=== PATIENT | female | born 1960 | race Caucasian/White ===

== ENCOUNTER 2017-09-07 14:42 | Inpatient (IN) | payer MEDICARE ==
[~2017-09-07] VITALS: Ht 165.1 cm; Wt 53.8 kg
[2017-09-07] MEDS ORDERED: LORazepam 2 MG/ML, 1ML ONE (15:23)
[2017-09-07] MEDS ORDERED: LORazepam 2 MG/ML, 1ML IVP ONE (15:30)
[2017-09-07] MEDS ORDERED: SODIUM CHLORIDE FLUSH 10ML SYR IVF ONE (15:30)
[2017-09-07] MEDS ORDERED: SODIUM CHLORIDE 0.9% 1,000ML IVBOLUS ONE (15:30)
[2017-09-07 15:33] LABS: WHITE BLOOD COUNT 7.7 x10^3/uL (3.4-10)
[2017-09-07] MEDS ORDERED: ALBUTEROL/IPRATROPIUM 2.5MG/0.5MG, 3 ML ONE ×2 (15:36→16:38)
[2017-09-07] MEDS: ALBUTEROL/IPRATROPIUM 2.5MG/0.5MG, 3 ML NPPB SCH ×3 (15:36→23:00)
[2017-09-07 15:41] LABS: BLOOD UREA NITROGEN 25 mg/dL (7-18)
[2017-09-07 15:48] LABS: IS PT STATUS REG ER OR PRE ER? YES
[2017-09-07] MEDS ORDERED: MONT10TA6 PO (15:54)
[2017-09-07] MEDS ORDERED: FLUT1DIS3 INH (15:54)
[2017-09-07] MEDS ORDERED: AMPH30CA6 PO (15:54)
[2017-09-07] MEDS ORDERED: FESO8TAB PO (15:54)
[2017-09-07] MEDS ORDERED: ESTR0.5T PO (15:54)
[2017-09-07] MEDS ORDERED: MAGNESIUM SULFATE PMX 2GM/50ML 50 ML IV ONE (16:00)
[2017-09-07 16:16] LABS: RAPID INFLUENZA A Negative (Negative); RAPID INFLUENZA B Negative (Negative)
[2017-09-07] MEDS ORDERED: ALBUTEROL/IPRATROPIUM 2.5MG/0.5MG, 3 ML NPPB ONE (16:30)
[2017-09-07] MEDS ORDERED: SODIUM CHLORIDE 0.9% 1,000 ML IV SCH (17:42)
[2017-09-07] MEDS ORDERED: POLYETHYLENE GLYCOL 17 GM PACKET PO PRN (18:00)
[2017-09-07] MEDS ORDERED: ACETAMINOPHEN 325 MG TABLET PO PRN (18:00)
[2017-09-07] MEDS ORDERED: SODIUM CHLORIDE FLUSH 10ML SYR IVF PRN (18:00)
[2017-09-07] MEDS ORDERED: DOCUSATE 100 MG CAPSULE PO PRN (18:00)
[2017-09-07] MEDS ORDERED: ONDANSETRON 2MG/ML, 2ML IVPush PRN (18:00)
[2017-09-07] MEDS ORDERED: ENALAPRILAT 1.25 MG/ML, 2ML IVPush PRN (18:00)
[2017-09-07] MEDS ORDERED: BISACODYL 10 MG SUPP PR PRN (18:00)
[2017-09-07 18:30] VITALS: BP 118/71
[2017-09-07 19:51] VITALS: BP 118/71
[2017-09-07] MEDS: GUAIFENESIN ER 600 MG TABLET PO SCH (20:57)
[2017-09-07] MEDS: LORazepam 2 MG/ML, 1ML IVPush PRN (20:57)
[2017-09-07] MEDS: methylPREDNISolone SOD SUCC 125 MG/2 ML IVPush SCH (20:57)
[2017-09-07] MEDS ORDERED: VARENICLINE 1MG TABLET PO SCH (21:00)
[2017-09-08 02:51] VITALS: BP 114/65
[2017-09-08] MEDS: methylPREDNISolone SOD SUCC 125 MG/2 ML IVPush SCH ×2 (03:00→09:00)
[2017-09-08] MEDS: ALBUTEROL/IPRATROPIUM 2.5MG/0.5MG, 3 ML NPPB SCH ×5 (03:00→22:13)
[2017-09-08] MEDS: LORazepam 2 MG/ML, 1ML IVPush PRN (03:02)
[2017-09-08 05:57] LABS: BLOOD UREA NITROGEN 20 mg/dL (7-18)
[2017-09-08 06:57] VITALS: BP 118/74
[2017-09-08] MEDS ORDERED: FESOTERODINE FUMARATE PO SCH (09:00)
[2017-09-08] MEDS: FLUTICASONE/VILANTEROL 100-25MCG/INH INH SCH (09:00)
[2017-09-08] MEDS: AMPHETAMINE PO SCH (09:00)
[2017-09-08] MEDS: VARENICLINE 1MG TABLET PO SCH ×2 (09:00→17:00)
[2017-09-08] MEDS: DEXTROAMPHETAMINE PO SCH (09:00)
[2017-09-08] MEDS: ESTRADIOL 0.5 MG TABLET PO SCH (10:38)
[2017-09-08] MEDS: GUAIFENESIN ER 600 MG TABLET PO SCH ×2 (10:39→20:09)
[2017-09-08] MEDS: MONTELUKAST 10 MG TABLET PO SCH (10:39)
[2017-09-08 13:56] VITALS: BP 119/72
[2017-09-08 19:29] VITALS: BP 128/78
[2017-09-08] MEDS ORDERED: GUAIFENESIN/DM 200-20MG, 10ML UDC PO PRN (20:00)
[2017-09-09 02:33] VITALS: BP 129/77
[2017-09-09 06:50] VITALS: BP 102/63
[2017-09-09] MEDS: ALBUTEROL/IPRATROPIUM 2.5MG/0.5MG, 3 ML NPPB SCH (07:05)
[2017-09-09] MEDS: FLUTICASONE/VILANTEROL 100-25MCG/INH INH SCH (08:48)
[2017-09-09] MEDS: GUAIFENESIN ER 600 MG TABLET PO SCH (08:48)
[2017-09-09] MEDS: ESTRADIOL 0.5 MG TABLET PO SCH (08:49)
[2017-09-09] MEDS: MONTELUKAST 10 MG TABLET PO SCH (08:49)
[2017-09-09] MEDS: VARENICLINE 1MG TABLET PO SCH (08:49)
[2017-09-09] MEDS ORDERED: VARE1TAB21 PO (08:50)
[2017-09-09] MEDS: AMPHETAMINE PO SCH (08:50)
[2017-09-09] MEDS: DEXTROAMPHETAMINE PO SCH (08:50)
[2017-09-09] MEDS ORDERED: GUAI600T31 PO (08:50)
[2017-09-09] MEDS ORDERED: IPRA3AMP NPPB (08:50)
[2017-09-09] MEDS ORDERED: PRED20TA PO (08:50)
[2017-09-09] MEDS ORDERED: FLU VACC QS2017-18 (36MOS+) UP/PF 0.5 ML IM-VACC ONE (11:00)
== END 2017-09-09 11:30 | disposition home or self-care (01) | DRG 202 ==
LOC: ED 17:27 → EDIP 17:31 → UNDOADMIN 17:42 → 3NE 18:15
PROVIDERS: ADMIT Internal Medicine; ATTEND Internal Medicine
DX: J45.42 Moderate persistent asthma with status asthmaticus (principal); E44.1 Mild protein-calorie malnutrition; Z68.1 Body mass index [BMI] 19.9 or less, adult; Z82.49 Family history of ischemic heart disease and other diseases of the circulatory system; Z83.3 Family history of diabetes mellitus; Z90.710 Acquired absence of both cervix and uterus; R73.9 Hyperglycemia, unspecified; R91.1 Solitary pulmonary nodule; F17.200 Nicotine dependence, unspecified, uncomplicated; Z90.49 Acquired absence of other specified parts of digestive tract; Z90.89 Acquired absence of other organs; Z23 Encounter for immunization
CPT/HCPCS: 36415; 71010; 71250; 80048; 82040; 83605; 83880; 84484; 85025; 85610; 87400; 90686; 93005; 94640; 96361; 96374; 96375; J7620; J2060; J2930; J3475; J7030; J7512

== ENCOUNTER 2018-01-30 19:56 | Emergency (ER) | payer MEDICARE, MEDICAID ==
[~2018-01-30] VITALS: Ht 165.1 cm; Wt 53.2 kg
[~2018-01-30 19:56] MED LIST: AMPH30CA6 PO; ESTR0.5T PO; FESO8TAB PO; FLUT1DIS3 INH; GUAI600T31 PO; IPRA3AMP NPPB; MONT10TA6 PO; PRED20TA PO; VARE1TAB21 PO
[2018-01-30 19:58] VITALS: BP 104/67
== END 2018-01-30 20:24 | disposition left against medical advice (07) ==
LOC: ED 20:18
DX: I10 Essential (primary) hypertension (principal)
CPT/HCPCS: 99281

== ENCOUNTER 2018-03-24 03:01 | Emergency (ER) | payer MEDICARE, MEDICAID ==
[~2018-03-24] VITALS: Ht 165.1 cm; Wt 57.1 kg
[2018-03-24 03:02] VITALS: BP 121/75
[2018-03-24] MEDS ORDERED: MAALOX/HYOSCYAMINE/LIDOCAINE 45 ML BTL PO ONE (03:30)
[2018-03-24] MEDS ORDERED: PANTOPRAZOLE 20MG TABLET PO ONE (03:30)
[2018-03-24 03:54] LABS: BASOPHILS # (AUTO) 0.02 x10^3/uL (0-0.1); BASOPHILS % (AUTO) 0 % (0-1); EOSINOPHILS % (AUTO) 8 % (1-7); LYMPHOCYTES # (AUTO) 1.74 x10^3/uL (1-3.4); LYMPHOCYTES % (AUTO) 27 % (22-44); MD NO; MEAN CORPUSCULAR HEMOGLOBIN 31.1 pg (27.0-34.8); MEAN CORPUSCULAR HGB CONC 33.8 g/dL (32.4-35.8); MEAN CORPUSCULAR VOLUME 92.1 fL (80-100); MEAN PLATELET VOLUME 7.7 fL (7.4-10.4); MONOCYTES # (AUTO) 0.52 x10^3/uL (0.2-0.8); MONOCYTES % (AUTO) 8 % (2-9); NEUTROPHILS # (AUTO) 3.57 x10^3/uL (1.8-6.8); NEUTROPHILS % (AUTO) 56 % (42-75); PLATELET COUNT 205 x10^3/uL (130-400); RED BLOOD COUNT 4.59 x10^6/uL (3.82-5.3)
[2018-03-24 04:08] LABS: ALANINE AMINOTRANSFERASE 23 U/L (12-78); ALBUMIN 3.6 g/dL (3.4-5.0); ANION GAP 4 mmol/L (5-15); CALCIUM 8.6 mg/dL (8.5-10.1); CHLORIDE 105 mmol/L (98-107); CREATININE 0.89 mg/dL (0.55-1.02)
[2018-03-24] MEDS ORDERED: PANTOPRAZOLE 20MG TABLET ONE (04:09)
[2018-03-24] MEDS ORDERED: MAALOX/HYOSCYAMINE/LIDOCAINE 45 ML BTL ONE (04:09)
[2018-03-24 04:10] LABS: ALKALINE PHOSPHATASE 67 U/L (45-117); BILIRUBIN,TOTAL 0.3 mg/dL (0.2-1.0)
== END 2018-03-24 05:53 | disposition home or self-care (01) ==
LOC: ED 05:50
DX: K29.00 Acute gastritis without bleeding (principal); J45.909 Unspecified asthma, uncomplicated; Z90.49 Acquired absence of other specified parts of digestive tract; Z90.710 Acquired absence of both cervix and uterus
CPT/HCPCS: 36415; 74021; 76700; 80053; 83690; 85025; 93005; 99285

== ENCOUNTER 2018-04-04 19:23 | Inpatient (IN) | payer MEDICAID, MEDICARE, OTHER ==
[~2018-04-04] VITALS: Ht 165.1 cm; Wt 59.8 kg
[2018-04-04] MEDS ORDERED: LORazepam 2 MG/ML, 1ML IVPush STA (19:45)
[2018-04-04] MEDS ORDERED: ALBUTEROL/IPRATROPIUM 2.5MG/0.5MG, 3 ML ONE (19:49)
[2018-04-04] MEDS ORDERED: LORazepam 2 MG/ML, 1ML ONE (19:52)
[2018-04-04] MEDS ORDERED: SODIUM CHLORIDE FLUSH 10ML SYR IVF ONE (20:00)
[2018-04-04] MEDS ORDERED: ALBUTEROL/IPRATROPIUM 2.5MG/0.5MG, 3 ML NPPB ONE (20:00)
[2018-04-04 20:53] LABS: BASOPHILS # (AUTO) 0.01 x10^3/uL (0-0.1); BASOPHILS % (AUTO) 0 % (0-1); EOSINOPHILS # (AUTO) 0.01 x10^3/uL (0-0.4); EOSINOPHILS % (AUTO) 0 % (1-7); LYMPHOCYTES # (AUTO) 0.65 x10^3/uL (1-3.4); LYMPHOCYTES % (AUTO) 6 % (22-44); MD NO; MEAN CORPUSCULAR HEMOGLOBIN 30.8 pg (27.0-34.8); MEAN CORPUSCULAR HGB CONC 33.3 g/dL (32.4-35.8); MEAN CORPUSCULAR VOLUME 92.4 fL (80-100); MEAN PLATELET VOLUME 7.9 fL (7.4-10.4); MONOCYTES # (AUTO) 0.33 x10^3/uL (0.2-0.8); MONOCYTES % (AUTO) 3 % (2-9); NEUTROPHILS # (AUTO) 10.26 x10^3/uL (1.8-6.8); NEUTROPHILS % (AUTO) 91 % (42-75); PLATELET COUNT 197 x10^3/uL (130-400); RED BLOOD COUNT 4.58 x10^6/uL (3.82-5.3); RED CELL DISTRIBUTION WIDTH 14.1 % (9.6-15.2)
[2018-04-04 21:04] LABS: ALBUMIN 3.8 g/dL (3.4-5.0); ANION GAP 6 mmol/L (5-15); CALCIUM 8.9 mg/dL (8.5-10.1); CHLORIDE 107 mmol/L (98-107); CREATININE 0.98 mg/dL (0.55-1.02)
[2018-04-04 21:08] LABS: TROPONIN I < 0.015 ng/mL (0.000-0.045)
[2018-04-04] MEDS ORDERED: MORPHINE SULFATE 4 MG/ML, 1ML IVPush PRN (22:00)
[2018-04-04] MEDS ORDERED: MORPHINE SULFATE 4 MG/ML, 1ML ONE (22:06)
[2018-04-04] MEDS: VARENICLINE 1MG TABLET PO SCH (22:30)
[2018-04-04] MEDS ORDERED: HYDROcodone/APAP 5/325 TABLET PO PRN (22:30)
[2018-04-04] MEDS ORDERED: ACETAMINOPHEN 325 MG TABLET PO PRN (22:30)
[2018-04-04] MEDS ORDERED: BISACODYL 10 MG SUPP PR PRN (22:30)
[2018-04-04 23:00] VITALS: BP 127/71
[2018-04-05 00:05] VITALS: BP 127/71
[2018-04-05] MEDS: methylPREDNISolone SOD SUCC 125 MG/2 ML IVPush SCH ×5 (00:26→21:57)
[2018-04-05] MEDS: SODIUM CHLORIDE FLUSH 10ML SYR IVF SCH ×3 (00:26→21:56)
[2018-04-05] MEDS: AZITHROMYCIN 500 MG in SODIUM CHLORIDE 0.9% 250 ML IV SCH ×2 (00:26→21:58)
[2018-04-05] MEDS: GUAIFENESIN ER 600 MG TABLET PO SCH ×3 (00:27→21:57)
[2018-04-05] MEDS ORDERED: OMNIPAQUE 350 MG/ML, 100ML BOTTLE ONE (01:47)
[2018-04-05 03:45] VITALS: BP 94/58
[2018-04-05 03:51] VITALS: BP 108/70
[2018-04-05] MEDS ORDERED: VARE1TAB21 PO (04:29)
[2018-04-05] MEDS: ONDANSETRON 2MG/ML, 2ML IVPush PRN ×4 (04:39→22:14)
[2018-04-05] MEDS: ALBUTEROL/IPRATROPIUM 2.5MG/0.5MG, 3 ML NPPB SCH ×4 (06:45→19:18)
[2018-04-05 08:13] VITALS: BP 110/61
[2018-04-05] MEDS: DEXTROAMPHETAMINE HOMEMEDPO SCH (09:00)
[2018-04-05] MEDS: FESOTERODINE FUMARATE HOMEMEDPO SCH (09:00)
[2018-04-05] MEDS: AMPHETAMINE HOMEMEDPO SCH (09:00)
[2018-04-05] MEDS: VARENICLINE 1MG TABLET PO SCH (09:00)
[2018-04-05] MEDS: [UNRECOGNIZED DRUG - OTHER] HOMEMEDPO SCH (09:00)
[2018-04-05] MEDS ORDERED: CETIRIZINE 10 MG TABLET PO PRN (10:30)
[2018-04-05] MEDS: SODIUM CHLORIDE NASAL SPRAY 45ML BOTTLE NAS SCH ×3 (10:30→21:57)
[2018-04-05] MEDS ORDERED: OXYcodone IR 5MG TABLET PO PRN (10:30)
[2018-04-05] MEDS: OXYcodone IR 5MG TABLET PO PRN ×3 (10:54→21:57)
[2018-04-05] MEDS ORDERED: OMEP40CA6 PO (11:07)
[2018-04-05] MEDS: SENNA/DOCUSATE TABLET PO SCH (11:23)
[2018-04-05] MEDS: MONTELUKAST 10 MG TABLET PO SCH (11:24)
[2018-04-05] MEDS: ESTRADIOL 0.5 MG TABLET PO SCH (11:24)
[2018-04-05] MEDS: FLUTICASONE NASAL SPRAY 16GM NAS SCH ×2 (11:25→21:56)
[2018-04-05] MEDS: FLUTICASONE/VILANTEROL 100-25MCG/INH INH SCH (11:25)
[2018-04-05 15:03] VITALS: BP 105/61
[2018-04-05] MEDS ORDERED: SUCR1TAB PO (16:29)
[2018-04-05] MEDS: VARENICLINE 1MG TABLET HOMEMEDPO SCH (17:00)
[2018-04-05] MEDS: SUCRALFATE 1 GM TABLET PO SCH ×2 (17:00→21:57)
[2018-04-05 18:46] VITALS: BP 95/68
[2018-04-06 03:38] VITALS: BP 126/68
[2018-04-06] MEDS: methylPREDNISolone SOD SUCC 125 MG/2 ML IVPush SCH ×4 (04:35→22:38)
[2018-04-06] MEDS: OXYcodone IR 5MG TABLET PO PRN ×3 (06:40→22:38)
[2018-04-06] MEDS: ALBUTEROL/IPRATROPIUM 2.5MG/0.5MG, 3 ML NPPB SCH ×4 (06:58→19:34)
[2018-04-06 08:02] VITALS: BP 118/67
[2018-04-06] MEDS: AMPHETAMINE HOMEMEDPO SCH (09:00)
[2018-04-06] MEDS: SODIUM CHLORIDE NASAL SPRAY 45ML BOTTLE NAS SCH ×2 (09:00→21:00)
[2018-04-06] MEDS: FESOTERODINE FUMARATE HOMEMEDPO SCH (09:00)
[2018-04-06] MEDS: DEXTROAMPHETAMINE HOMEMEDPO SCH (09:00)
[2018-04-06] MEDS: FLUTICASONE NASAL SPRAY 16GM NAS SCH ×2 (09:00→21:00)
[2018-04-06] MEDS: [UNRECOGNIZED DRUG - OTHER] HOMEMEDPO SCH (09:00)
[2018-04-06] MEDS: SODIUM CHLORIDE FLUSH 10ML SYR IVF SCH ×2 (09:25→21:00)
[2018-04-06] MEDS: OMEPRAZOLE 20 MG CAPSULE.DR PO SCH (09:26)
[2018-04-06] MEDS: SUCRALFATE 1 GM TABLET PO SCH ×4 (09:26→21:20)
[2018-04-06] MEDS: ESTRADIOL 0.5 MG TABLET PO SCH (09:29)
[2018-04-06] MEDS: GUAIFENESIN ER 600 MG TABLET PO SCH ×2 (09:29→21:20)
[2018-04-06] MEDS: MONTELUKAST 10 MG TABLET PO SCH (09:29)
[2018-04-06] MEDS: SENNA/DOCUSATE TABLET PO SCH (09:29)
[2018-04-06] MEDS: VARENICLINE 1MG TABLET HOMEMEDPO SCH ×2 (09:37→18:19)
[2018-04-06] MEDS: FLUTICASONE/VILANTEROL 100-25MCG/INH INH SCH (09:37)
[2018-04-06 14:30] VITALS: BP 105/56
[2018-04-06 19:00] VITALS: BP 136/82
[2018-04-06] MEDS: POLYETHYLENE GLYCOL 17 GM PACKET PO PRN (22:42)
[2018-04-07 02:43] VITALS: BP 140/74
[2018-04-07] MEDS: OXYcodone IR 5MG TABLET PO PRN ×5 (02:55→23:09)
[2018-04-07] MEDS: methylPREDNISolone SOD SUCC 125 MG/2 ML IVPush SCH ×4 (05:15→21:27)
[2018-04-07 07:57] VITALS: BP 134/73
[2018-04-07] MEDS: OMEPRAZOLE 20 MG CAPSULE.DR PO SCH (08:16)
[2018-04-07] MEDS: VARENICLINE 1MG TABLET HOMEMEDPO SCH ×2 (08:16→17:58)
[2018-04-07] MEDS: AMPHETAMINE HOMEMEDPO SCH (08:16)
[2018-04-07] MEDS: SODIUM CHLORIDE FLUSH 10ML SYR IVF SCH ×2 (08:16→21:27)
[2018-04-07] MEDS: FESOTERODINE FUMARATE HOMEMEDPO SCH (08:16)
[2018-04-07] MEDS: DEXTROAMPHETAMINE HOMEMEDPO SCH (08:16)
[2018-04-07] MEDS: SUCRALFATE 1 GM TABLET PO SCH ×4 (08:16→21:27)
[2018-04-07] MEDS: [UNRECOGNIZED DRUG - OTHER] HOMEMEDPO SCH (08:16)
[2018-04-07] MEDS: FLUTICASONE/VILANTEROL 100-25MCG/INH INH SCH (08:16)
[2018-04-07] MEDS: MONTELUKAST 10 MG TABLET PO SCH (08:17)
[2018-04-07] MEDS: GUAIFENESIN ER 600 MG TABLET PO SCH (08:17)
[2018-04-07] MEDS: AZITHROMYCIN 500 MG TABLET PO SCH (08:17)
[2018-04-07] MEDS: ESTRADIOL 0.5 MG TABLET PO SCH (08:17)
[2018-04-07] MEDS: SENNA/DOCUSATE TABLET PO SCH (08:17)
[2018-04-07] MEDS: SODIUM CHLORIDE NASAL SPRAY 45ML BOTTLE NAS SCH ×2 (08:30→21:00)
[2018-04-07] MEDS: FLUTICASONE NASAL SPRAY 16GM NAS SCH ×2 (08:30→21:00)
[2018-04-07] MEDS: ALBUTEROL/IPRATROPIUM 2.5MG/0.5MG, 3 ML NPPB PRN ×2 (10:30→20:58)
[2018-04-07] MEDS: GABAPENTIN 100 MG CAPSULE PO SCH ×3 (13:00→21:27)
[2018-04-07] MEDS: GUAIFENESIN/DM 200-20MG, 10ML UDC PO PRN ×2 (14:00→21:26)
[2018-04-07 15:31] VITALS: BP 133/73
[2018-04-07 19:48] VITALS: BP 148/93
[2018-04-07] MEDS: POLYETHYLENE GLYCOL 17 GM PACKET PO PRN (23:09)
[2018-04-08 01:22] VITALS: BP 132/74
[2018-04-08] MEDS: OXYcodone IR 5MG TABLET PO PRN ×2 (04:35→09:42)
[2018-04-08 05:09] LABS: CHLORIDE 104 mmol/L (98-107)
[2018-04-08 05:11] LABS: BASOPHILS % (AUTO) 0 % (0-1); EOSINOPHILS % (AUTO) 0 % (1-7); LYMPHOCYTES # (AUTO) 0.57 x10^3/uL (1-3.4); LYMPHOCYTES % (AUTO) 6 % (22-44); MD NO; MEAN CORPUSCULAR HEMOGLOBIN 31.4 pg (27.0-34.8); MEAN CORPUSCULAR HGB CONC 33.6 g/dL (32.4-35.8); MEAN CORPUSCULAR VOLUME 93.3 fL (80-100); MEAN PLATELET VOLUME 8.4 fL (7.4-10.4); MONOCYTES # (AUTO) 0.43 x10^3/uL (0.2-0.8); MONOCYTES % (AUTO) 5 % (2-9); NEUTROPHILS # (AUTO) 8.09 x10^3/uL (1.8-6.8); NEUTROPHILS % (AUTO) 89 % (42-75); PLATELET COUNT 185 x10^3/uL (130-400); RED BLOOD COUNT 3.92 x10^6/uL (3.82-5.3); RED CELL DISTRIBUTION WIDTH 14.5 % (9.6-15.2)
[2018-04-08 05:17] LABS: ANION GAP 8 mmol/L (5-15); CALCIUM 8.7 mg/dL (8.5-10.1); CREATININE 0.89 mg/dL (0.55-1.02)
[2018-04-08] MEDS: GABAPENTIN 100 MG CAPSULE PO SCH ×2 (05:28→11:36)
[2018-04-08 08:30] VITALS: BP 133/81
[2018-04-08] MEDS ORDERED: IPRA3AMP NPPB (08:54)
[2018-04-08] MEDS ORDERED: PRED20TA PO (08:54)
[2018-04-08] MEDS ORDERED: GUAI600T31 PO (08:54)
[2018-04-08] MEDS: FESOTERODINE FUMARATE HOMEMEDPO SCH (09:00)
[2018-04-08] MEDS: AMPHETAMINE HOMEMEDPO SCH (09:00)
[2018-04-08] MEDS: [UNRECOGNIZED DRUG - OTHER] HOMEMEDPO SCH (09:00)
[2018-04-08] MEDS: VARENICLINE 1MG TABLET HOMEMEDPO SCH (09:00)
[2018-04-08] MEDS: DEXTROAMPHETAMINE HOMEMEDPO SCH (09:00)
[2018-04-08] MEDS: SENNA/DOCUSATE TABLET PO SCH (09:00)
[2018-04-08] MEDS ORDERED: AZIT500T5 PO (09:09)
[2018-04-08] MEDS: SUCRALFATE 1 GM TABLET PO SCH ×2 (09:25→11:36)
[2018-04-08] MEDS: ESTRADIOL 0.5 MG TABLET PO SCH (09:25)
[2018-04-08] MEDS: AZITHROMYCIN 500 MG TABLET PO SCH (09:25)
[2018-04-08] MEDS: OMEPRAZOLE 20 MG CAPSULE.DR PO SCH (09:26)
[2018-04-08] MEDS: FLUTICASONE/VILANTEROL 100-25MCG/INH INH SCH (09:27)
[2018-04-08] MEDS: SODIUM CHLORIDE FLUSH 10ML SYR IVF SCH (09:27)
[2018-04-08] MEDS: methylPREDNISolone SOD SUCC 125 MG/2 ML IVPush SCH (09:28)
[2018-04-08] MEDS: FLUTICASONE NASAL SPRAY 16GM NAS SCH (09:28)
[2018-04-08] MEDS: SODIUM CHLORIDE NASAL SPRAY 45ML BOTTLE NAS SCH (09:28)
[2018-04-08] MEDS: MONTELUKAST 10 MG TABLET PO SCH (09:45)
== END 2018-04-08 14:02 | disposition home or self-care (01) | DRG 189 ==
LOC: ED 21:39 → EDIP 22:04 → 3NE 22:54
PROVIDERS: ADMIT Hospitalist; ATTEND Hospitalist
DX: J96.01 Acute respiratory failure with hypoxia (principal); F11.20 Opioid dependence, uncomplicated; J44.1 Chronic obstructive pulmonary disease with (acute) exacerbation; J98.11 Atelectasis; K27.9 Peptic ulcer, site unspecified, unspecified as acute or chronic, without hemorrhage or perforation; R91.1 Solitary pulmonary nodule; G89.29 Other chronic pain; Z72.0 Tobacco use; Z71.6 Tobacco abuse counseling; Z82.49 Family history of ischemic heart disease and other diseases of the circulatory system; Z83.3 Family history of diabetes mellitus; Z87.11 Personal history of peptic ulcer disease; Z90.710 Acquired absence of both cervix and uterus; Z99.81 Dependence on supplemental oxygen; Z90.49 Acquired absence of other specified parts of digestive tract; Z88.5 Allergy status to narcotic agent; Z88.0 Allergy status to penicillin; Z88.2 Allergy status to sulfonamides; Z88.8 Allergy status to other drugs, medicaments and biological substances
CPT/HCPCS: 36415; 99285; J7620; 71045; 71275; 80048; 82040; 83880; 84484; 85025; 87070; 87205; 93005; 94640; 96374; J0456; J2405; Q9967; J2060; J2930; J7050; J7512